=== PATIENT | male | born 1985 | race Caucasian/White ===

== ENCOUNTER 2016-09-25 11:37 | Emergency (ER) | payer OTHER ==
[2016-09-25] MEDS ORDERED: LIDOCAINE 5% PATCH TD ONE (13:30)
== END 2016-09-25 13:39 | disposition home or self-care (01) ==
LOC: ED 11:37
DX: R07.89 Other chest pain (principal); W19.XXXA Unspecified fall, initial encounter; Y92.9 Unspecified place or not applicable
CPT/HCPCS: 99283 ×2; 93005; A9270